=== PATIENT | male | born 1980 | race Asian ===

== ENCOUNTER → 2021-08-13 08:18 | Outpatient (CLI) | payer OTHER, SELFPAY ==
[2021-08-13 19:52] LABS: COVID19 - ORCAS (NP or Nasal) Negative (Negative)
== END ==
PROVIDERS: PCP Physician Assistant Medical; Visit Provider Physician Assistant Medical
DX: Z20.822 Contact with and (suspected) exposure to COVID-19 (principal)
CPT/HCPCS: U0003

== ENCOUNTER → 2022-06-23 11:37 | Outpatient (CLI) | payer OTHER, SELFPAY ==
[2022-06-23 20:08] LABS: Add Manual Diff / Slide Review NO; Basophils Absolute Auto 0 /uL (0-100); Basophils Percent Auto 0.6 % (0-2); Eosinophils Absolute Auto 100 /uL (0-450); Eosinophils Percent Auto 1.7 % (2-4); Hematocrit 46.4 % (41-53); Hemoglobin 15.3 g/dL (13.5-17.5); Lymphocytes Absolute Auto 1700 /uL (1100-4500); Lymphocytes Percent Auto 35.8 % (25-40); Mean Corpuscular HGB Conc 32.9 % (30-36); Mean Corpuscular Hemoglobin 27.5 PG (26-34); Mean Corpuscular Volume 83.4 fL (80-100); Monocytes Absolute Auto 600 /uL (0-900); Monocytes Percent Auto 12.5 % (3-14); Neutrophils Absolute Auto 2300 /uL (1500-7000); Neutrophils Percent Auto 49.4 % (50-75); Platelet Count 211 X10^3/uL (150-400); Red Blood Cell Count 5.56 X10^6/uL (4.5-5.9); Red Cell Distribution Width 14.1 % (11.6-14.8); White Blood Cell Count 4.7 X10^3/uL (4.5-11.0)
[2022-06-23 20:30] LABS: Erythrocyte Sedimentation Rate 5 MM/HR (0-15)
[2022-06-23 20:46] LABS: Appearance Urine UA CLEAR; Bilirubin Urine UA NEGATIVE (NEGATIVE); Color Urine UA YELLOW; Glucose Urine UA NEGATIVE (Negative); Ketones Urine UA 2+ (NEGATIVE); Leukocyte Esterase Urine UA NEGATIVE (NEGATIVE); Nitrite Urine UA NEGATIVE (Negative); Occult Blood Urine UA 1+ (Negative); Protein Urine UA 1+ (Negative); Specific Gravity Urine UA 1.025 (1.000-1.035); Urobilinogen Urine UA 0.2 E.U./dL (0.2); pH Urine UA 5.5 (4.5-8.0)
[2022-06-23 20:53] LABS: HEMOLYSIS < 15 (0-50)
[2022-06-23 21:03] LABS: Alanine Aminotransferase 59 IU/L (<50); Albumin 4.4 g/dL (3.5-5.0); Albumin Globulin Ratio 1.3 (1.0-2.8); Alkaline Phosphatase 328 U/L (38-126); Aspartate Aminotransferase 50 IU/L (17-59); Bilirubin Total 2.8 mg/dL (0.2-1.3); Blood Urea Nitrogen 16 mg/dL (9-20); Calcium 9.8 mg/dL (8.4-10.2); Carbon Dioxide 24 mmol/L (22-32); Chloride 105 mmol/L (98-107); Cholesterol 151 mg/dL (140-199); Estimated Glomerular Filt Rate > 60 mL/min (>60); Globulin 3.3 g/dL (1.7-4.1); Glucose 98 mg/dL (70-100); HDL Cholesterol 40 mg/dL (40-60); LDL Cholesterol Calculated 93 mg/dL (<100); Potassium 3.9 mmol/L (3.4-5.1); Sodium 140 mmol/L (137-145); Total Protein 7.7 g/dL (6.3-8.2); Triglycerides 89 mg/dL (35-150)
[2022-06-23 21:23] LABS: RBC Urine 0-1/HPF (0-5/HPF); WBC Urine None Seen (0-5/HPF)
[2022-06-23 21:24] LABS: Bacteria Urine None Seen; Culture Indicated Urine Cult Not Indicated; Mucus Urine 2+ (Negative)
[2022-06-23 21:32] LABS: TSH w/ Reflex to FT4 < 0.02 uIU/mL (0.47-4.68)
[2022-06-23 22:11] LABS: C-Reactive Protein Quant < 0.5 mg/dL (<1.0)
[2022-06-23 22:28] LABS: Free T4, Direct Thyroxine > 6.99 ng/dL (0.78-2.19)
[2022-06-24 13:29] LABS: Vitamin B12 585 pg/mL (239-931)
== END ==
PROVIDERS: PCP Physician Assistant Medical; Visit Provider Family Medicine
DX: Z00.00 Encounter for general adult medical examination without abnormal findings (principal); Z13.1 Encounter for screening for diabetes mellitus; Z13.220 Encounter for screening for lipoid disorders; Z13.6 Encounter for screening for cardiovascular disorders; R00.0 Tachycardia, unspecified
CPT/HCPCS: 80053; 80061; 81001; 82607; 84439; 84443; 85025; 85651; 86140

== ENCOUNTER → 2022-06-27 13:10 | Outpatient (CLI) | payer OTHER, SELFPAY ==
[2022-06-29 17:26] LABS: Anti Thyroglobulin Antibody <1.0 IU/mL (0.0-0.9); Thyroid Peroxidase Antibodies 106 IU/mL (0-34)
[2022-07-04 08:52] LABS: Testosterone % Fr + Wkly bound 6.9 % (9.0-46.0); Testosterone Fr+Wkly bound 125.4 ng/dL (40.0-250.0)
[2022-07-08 22:07] LABS: Thyroglobulin Level 124 ng/mL (.)
== END ==
PROVIDERS: Family Medicine; PCP Physician Assistant Medical; Visit Provider Family Medicine
DX: E05.90 Thyrotoxicosis, unspecified without thyrotoxic crisis or storm (principal); L70.9 Acne, unspecified
CPT/HCPCS: 84403; 84432; 86376; 86800

== ENCOUNTER → 2022-07-27 13:11 | Outpatient (CLI) | payer OTHER, SELFPAY ==
[2022-07-27 19:31] LABS: Add Manual Diff / Slide Review NO; Basophils Absolute Auto 0 /uL (0-100); Basophils Percent Auto 0.6 % (0-2); Eosinophils Absolute Auto 300 /uL (0-450); Eosinophils Percent Auto 3.7 % (2-4); Hematocrit 43.7 % (41-53); Hemoglobin 14.9 g/dL (13.5-17.5); Lymphocytes Absolute Auto 2400 /uL (1100-4500); Lymphocytes Percent Auto 33.2 % (25-40); Mean Corpuscular Hemoglobin 27.8 PG (26-34); Mean Corpuscular Volume 81.6 fL (80-100); Monocytes Absolute Auto 500 /uL (0-900); Monocytes Percent Auto 6.4 % (3-14); Neutrophils Absolute Auto 4000 /uL (1500-7000); Neutrophils Percent Auto 56.1 % (50-75); Platelet Count 263 X10^3/uL (150-400); Red Blood Cell Count 5.36 X10^6/uL (4.5-5.9); Red Cell Distribution Width 14.4 % (11.6-14.8); White Blood Cell Count 7.2 X10^3/uL (4.5-11.0)
[2022-07-27 19:51] LABS: Alanine Aminotransferase 30 IU/L (<50); Albumin 4.2 g/dL (3.5-5.0); Albumin Globulin Ratio 1.4 (1.0-2.8); Alkaline Phosphatase 279 U/L (38-126); Aspartate Aminotransferase 28 IU/L (17-59); BUN Creatinine Ratio 32.7 (6-22); Bilirubin Total 1.3 mg/dL (0.2-1.3); Blood Urea Nitrogen 16 mg/dL (9-20); Calcium 9.3 mg/dL (8.4-10.2); Carbon Dioxide 26 mmol/L (22-32); Chloride 101 mmol/L (98-107); Estimated Glomerular Filt Rate > 60 mL/min (>60); Globulin 3.1 g/dL (1.7-4.1); Glucose 121 mg/dL (70-100); HEMOLYSIS < 15 (0-50); Potassium 4.2 mmol/L (3.4-5.1); Sodium 140 mmol/L (137-145); Total Protein 7.3 g/dL (6.3-8.2)
[2022-07-27 20:01] LABS: Free T4, Direct Thyroxine 2.45 ng/dL (0.78-2.19)
[2022-07-27 20:19] LABS: Thyroid Stimulating Hormone < 0.015 uIU/mL (0.47-4.68)
[2022-07-30 15:35] LABS: Anti Thyroglobulin Antibody <1.0 IU/mL (0.0-0.9); Thyroid Peroxidase Antibodies 85 IU/mL (0-34)
== END ==
PROVIDERS: Family Medicine; PCP Physician Assistant Medical; Visit Provider Family Medicine
DX: E05.00 Thyrotoxicosis with diffuse goiter without thyrotoxic crisis or storm (principal); E05.90 Thyrotoxicosis, unspecified without thyrotoxic crisis or storm; R00.0 Tachycardia, unspecified
CPT/HCPCS: 80053; 84439; 84443; 85025; 86376; 86800

== ENCOUNTER → 2022-08-04 11:08 | Outpatient (CLI) | payer OTHER, SELFPAY ==
--- NOTE | 2022-08-04 11:10 | DI.US.S_ITS ---
PROCEDURE: US THYROID INDICATIONS: NEW ONSET HYPERTHYROIDISM TECHNIQUE: Real-time scanning was performed of the thyroid gland, with image documentation. COMPARISON: None. FINDINGS: Right: Thyroid lobe measures 6 x 1.8 x 2.5 cm, and is heterogeneous in echotexture. Left: Thyroid lobe measures 5.8 x 1.5 x 2.3 cm, and is heterogeneous in echotexture. Isthmus: 2 mm thick. Nodule number: 1 Location: Lower pole right thyroid lobe Size: 0.9 x 0.8 x 0.9 cm. Composition: Cystic Echogenicity: Anechoic with internal septations Shape: Wider than tall Margins: Smooth Echogenic foci: None Total points: 0 ACR TI-RADS category: Benign. Diffusely increased vascularity within bilateral thyroid lobes are seen. IMPRESSION: 1. Mildly enlarged thyroid gland with heterogeneous thyroid parenchymal echotexture and increased vascularity bilaterally concerning for thyroiditis. 2. Benign appearing septated cyst in lower pole right thyroid lobe. No suspicious thyroid nodule is seen. No neck soft tissue lymphadenopathy. ACR TI-RADS definitions and recommendations: TI-RADS 1 (benign): 0 points. FNA not needed. TI-RADS 2 (not suspicious): 2 points. FNA not needed. TI-RADS 3 (mildly suspicious): 3 points. * FNA if 2.5 cm or larger, follow up if 1.5 cm or larger (at 1, 3, and 5 years). TI-RADS 4 (moderately suspicious): 4-6 points. * FNA if 1.5 cm or larger, follow up if 1 cm or larger (at 1, 2, 3, and 5 years). TI-RADS 5 (highly suspicious): 7 points or more. * FNA if 1 cm or larger, follow up if 0.5 cm or larger (every year for 5 years). Dictated by: Preet Arora M.D. on 08/04/2022 at 13:55 Approved by: Preet Arora M.D. on 08/04/2022 at 13:57
--- NOTE | 2022-08-04 11:10 | DI.ECHO.S_ITS ---
[facility] +---------+ : : [address] : : : : [id number] : : : : Phone: [phone]+ Echocardiogram Report + + :Name: CLEVELAND SPENCE Study Date: 08/04/2022 Height: 66 in : :[facility] ReadingLocation: Weight: 120 lb : : Gender: Male BSA: 1.6 m2 : :: 1980 Age: 42 yrs BP: 120/78 mmHg: :Reason For Study: Tachycardia, hyperthyroidism : :Ordering Physician: JOSE, : :LAMONT Performed By: Lisa Sherwood : :Referring: LAMONT GARCIA : + + Interpretation Summary The left ventricle is normal in size and wall thickness. The ejection fraction is estimated to be 60-65%. The right ventricle is normal in size and function. There is mild to moderate mitral regurgitation. There is mild to moderate tricuspid regurgitation. The right ventricular systolic pressure is estimated to be at least 31.2 mmHg based on an estimated right atrial pressure of 8 mm Hg. Procedure: A two-dimensional transthoracic echocardiogram with color flow and Doppler was performed. The study quality was technically good. There is no prior echocardiogram noted for this patient. The patient was in sinus bradycardia with heart rates between 61-69 bpm during the exam. Left Ventricle: The left ventricle is normal in size and wall thickness. There is no thrombus. The ejection fraction is estimated to be 60-65%. There are no focal wall motion abnormalities. Diastolic parameters suggest probable normal left ventricular diastolic function and normal filling pressures. Right Ventricle: The right ventricle is normal in size and function. Atria: The left atrial size is normal. Right atrial size is normal. There is no Doppler evidence for an interatrial shunt. Mitral Valve: The mitral valve leaflets appear mildly thickened, but open well. The mitral valve leaflets appear to open well. There is no mitral valve stenosis. There is mild to moderate mitral regurgitation. Aortic Valve: The aortic valve is grossly normal. The aortic valve is trileaflet. There is no aortic valve stenosis. No aortic regurgitation is present. Tricuspid Valve: The tricuspid valve is normal. There is mild to moderate tricuspid regurgitation. The right ventricular systolic pressure is estimated to be at least 31.2 mmHg based on an estimated right atrial pressure of 8 mm Hg. Pulmonic Valve: The pulmonic valve leaflets are thin and pliable; valve motion is normal. There is trace pulmonic regurgitation. Great Vessels: The aortic root is normal size. The ascending aorta is normal in size. The IVC is dilated (diameter is greater than 2.1 cm) yet it collapses greater than 50% with a sniff. This suggests a right atrial pressure of 8 mm Hg. Pericardium/ Pleura There is no pericardial effusion. There is no pleural effusion. MMode/2D Measurements & Calculations LVIDd: 5.0 cm LVOT diam: 1.9 cm LVIDs: 2.9 cm Ao root diam: 3.2 cm FS: 42.0 % asc Aorta Diam: 3.2 cm EPSS: 0.30 cm IVSd: 0.50 cm LVPWd: 0.70 cm LV collins. diameter/BSA (cm/m^2): 3.1 LV sys. diameter/BSA (cm/m^2): 1.8 LA dimension: 3.4 cm RA long axis: 4.5 cm LA A2 area: 14.9 cm2 RA area: 13.9 cm2 LA A4 area: 14.1 cm2 RA vol: 36.2 ml LA length (vol): 4.4 cm RA : 22.5 ml/m2 LA vol: 40.3 ml IVC diam: 2.2 cm LA vol index: 25.0 ml/m2 RVD1 (basal): 3.4 cm LVLs ap4: 6.9 cm LVLd ap2: 8.8 cm TAPSE_phl: 2.8 cm LVLs ap2: 7.3 cm Doppler Measurements & Calculations Ao V2 max: 160.0 cm/sec LVOT Max Jaden: 129.0 cm/sec Ao V2 mean: 117.0 cm/sec LV V1 max P.7 mmHg Ao max P.0 mmHg LV V1 VTI: 27.9 cm Ao mean P.0 mmHg KAREN(I,D): 2.4 cm2 Ao V2 VTI: 33.2 cm KAREN(V,D): 2.3 cm2 sev ratio: 0.84 KAREN indexed to BSA (cm^2/m^2): 1.5 MV E max jaden: 74.1 cm/sec TR max jaden: 241.0 cm/sec MV A max jaden: 43.7 cm/sec TR max P.2 mmHg MV E/A: 1.7 PA V2 max: 96.1 cm/sec Med Peak E' Jaden: 10.7 cm/sec PA V2 mean: 63.0 cm/sec E/E' med: 6.9 PA mean P.0 mmHg Lat Peak E' Jaden: 16.1 cm/sec E/E' lat: 4.6 E/e' average: 5.8 MV dec time: 0.28 sec MVA(VTI): 3.1 cm2 MV V2 mean: 49.2 cm/sec SV(LVOT): 79.1 ml MV mean P.0 mmHg MV V2 VTI: 25.7 cm AV VR_phl: 0.81 MV P1/2t-pr_phl: 82.0 msec KAREN(VTI)/BSA_phl: 1.5 Reading Physician:07:05 PM
== END ==
PROVIDERS: PCP Physician Assistant Medical; Referring Provider Family Medicine; Visit Provider Family Medicine
DX: E05.90 Thyrotoxicosis, unspecified without thyrotoxic crisis or storm (principal); R00.0 Tachycardia, unspecified; E04.1 Nontoxic single thyroid nodule; I08.1 Rheumatic disorders of both mitral and tricuspid valves
CPT/HCPCS: 76536; 93306

== ENCOUNTER → 2022-08-29 10:44 | Outpatient (CLI) | payer OTHER, SELFPAY ==
[2022-08-29 19:24] LABS: Alanine Aminotransferase 28 IU/L (<50); Albumin 4.6 g/dL (3.5-5.0); Albumin Globulin Ratio 1.4 (1.0-2.8); Alkaline Phosphatase 345 U/L (38-126); Aspartate Aminotransferase 26 IU/L (17-59); Bilirubin Total 1.7 mg/dL (0.2-1.3); Bilirubin Unconjugated 1.3 mg/dL (0.0-1.1); Globulin 3.3 g/dL (1.7-4.1); HEMOLYSIS 16 (0-50); Total Protein 7.9 g/dL (6.3-8.2)
[2022-08-29 19:48] LABS: TSH w/ Reflex to FT4 < 0.02 uIU/mL (0.47-4.68)
[2022-09-13 07:51] LABS: Percent Free Testosterone 1.32 % (1.50-4.20); Testosterone Free 10.45 ng/dL (5.00-21.00); Testosterone Total 791.9 ng/dL (264.0-916.0)
== END ==
PROVIDERS: PCP Physician Assistant Medical; Visit Provider Family Medicine
DX: E05.90 Thyrotoxicosis, unspecified without thyrotoxic crisis or storm (principal); E06.3 Autoimmune thyroiditis; E29.0 Testicular hyperfunction; R79.89 Other specified abnormal findings of blood chemistry
CPT/HCPCS: 80076; 84402; 84403; 84439; 84443

== ENCOUNTER → 2022-10-13 11:03 | Outpatient (CLI) | payer OTHER, SELFPAY ==
[2022-10-13 20:19] LABS: Alanine Aminotransferase 26 IU/L (<50); Albumin 4.7 g/dL (3.5-5.0); Albumin Globulin Ratio 1.5 (1.0-2.8); Alkaline Phosphatase 341 U/L (38-126); Aspartate Aminotransferase 28 IU/L (17-59); Bilirubin Total 1.8 mg/dL (0.2-1.3); Bilirubin Unconjugated 1.5 mg/dL (0.0-1.1); C-Reactive Protein Quant < 0.5 mg/dL (<1.0); Gamma Glutamyl Transpeptidase 22 U/L (15-73); Globulin 3.2 g/dL (1.7-4.1); HEMOLYSIS < 15 (0-50); Total Protein 7.9 g/dL (6.3-8.2)
[2022-10-13 20:34] LABS: Erythrocyte Sedimentation Rate 1 MM/HR (0-15)
[2022-10-13 20:45] LABS: TSH w/ Reflex to FT4 < 0.02 uIU/mL (0.47-4.68)
[2022-10-13 21:33] LABS: Free T4, Direct Thyroxine 0.74 ng/dL (0.78-2.19)
== END ==
PROVIDERS: PCP Physician Assistant Medical; Visit Provider Family Medicine
DX: E05.90 Thyrotoxicosis, unspecified without thyrotoxic crisis or storm (principal); E06.3 Autoimmune thyroiditis; R00.0 Tachycardia, unspecified; R79.89 Other specified abnormal findings of blood chemistry
CPT/HCPCS: 80076; 82977; 84439; 84443; 85651; 86140

== ENCOUNTER → 2022-11-22 11:08 | Outpatient (CLI) | payer OTHER, SELFPAY ==
[2022-11-22 20:02] LABS: Alanine Aminotransferase 27 IU/L (<50); Albumin 4.6 g/dL (3.5-5.0); Albumin Globulin Ratio 1.4 (1.0-2.8); Alkaline Phosphatase 327 U/L (38-126); Aspartate Aminotransferase 30 IU/L (17-59); BUN Creatinine Ratio 16.7 (6-22); Bilirubin Total 1.7 mg/dL (0.2-1.3); Blood Urea Nitrogen 13 mg/dL (9-20); Calcium 9.2 mg/dL (8.4-10.2); Carbon Dioxide 30 mmol/L (22-32); Chloride 102 mmol/L (98-107); Estimated Glomerular Filt Rate > 60 mL/min (>60); Globulin 3.4 g/dL (1.7-4.1); Glucose 95 mg/dL (70-100); HEMOLYSIS < 15 (0-50); Sodium 139 mmol/L (137-145)
[2022-11-22 20:17] LABS: Free T3, Triiodothyronine Free 2.43 pg/mL (2.77-5.27); Free T4, Direct Thyroxine 0.33 ng/dL (0.78-2.19)
[2022-11-22 20:30] LABS: Thyroid Stimulating Hormone 2.97 uIU/mL (0.47-4.68)
[2022-11-26 18:19] LABS: Thyroid Stimulating Immunoglob 5.63 IU/L (0.00-0.55)
[2022-11-28 05:10] LABS: Alkaline Phosphatase 377 IU/L (44-121)
[2022-11-29 09:10] LABS: Percent Free Testosterone 3.49 % (1.50-4.20); Testosterone Total 432.7 ng/dL (264.0-916.0)
== END ==
PROVIDERS: PCP Physician Assistant Medical; Visit Provider Internal Medicine Endocrinology, Diabetes & Metabolism
DX: E05.90 Thyrotoxicosis, unspecified without thyrotoxic crisis or storm (principal); R74.8 Abnormal levels of other serum enzymes; E06.3 Autoimmune thyroiditis; E29.0 Testicular hyperfunction; R79.89 Other specified abnormal findings of blood chemistry
CPT/HCPCS: 80053; 83520; 84080; 84402; 84403; 84439; 84443; 84445; 84481

== ENCOUNTER → 2023-02-28 14:33 | Outpatient (CLI) | payer OTHER, SELFPAY ==
[2023-02-28 19:58] LABS: Hemoglobin 15.8 g/dL (13.5-17.5); Mean Corpuscular HGB Conc 33.7 % (30-36); Mean Corpuscular Hemoglobin 29.9 PG (26-34); Mean Corpuscular Volume 88.8 fL (80-100); Platelet Count 229 X10^3/uL (150-400); Red Blood Cell Count 5.29 X10^6/uL (4.5-5.9); Red Cell Distribution Width 13.6 % (11.6-14.8); White Blood Cell Count 7.1 X10^3/uL (4.5-11.0)
[2023-02-28 20:04] LABS: Alanine Aminotransferase 22 IU/L (<50); Albumin 4.9 g/dL (3.5-5.0); Albumin Globulin Ratio 1.3 (1.0-2.8); Alkaline Phosphatase 167 U/L (38-126); Aspartate Aminotransferase 31 IU/L (17-59); BUN Creatinine Ratio 19.5 (6-22); Bilirubin Total 1.7 mg/dL (0.2-1.3); Blood Urea Nitrogen 16 mg/dL (9-20); Calcium 9.3 mg/dL (8.4-10.2); Carbon Dioxide 24 mmol/L (22-32); Chloride 100 mmol/L (98-107); Estimated Glomerular Filt Rate > 60 mL/min (>60); Globulin 3.7 g/dL (1.7-4.1); Glucose 97 mg/dL (70-100); HEMOLYSIS 46 (0-50); Potassium 4.4 mmol/L (3.4-5.1); Sodium 138 mmol/L (137-145); Total Protein 8.6 g/dL (6.3-8.2)
[2023-02-28 20:19] LABS: Vitamin D 25 Hydroxy (D3) 38.8 ng/mL (30.0-100.0)
[2023-02-28 20:25] LABS: Free T3, Triiodothyronine Free 4.01 pg/mL (2.77-5.27)
[2023-02-28 20:39] LABS: Thyroid Stimulating Hormone 2.65 uIU/mL (0.47-4.68)
== END ==
PROVIDERS: PCP Physician Assistant Medical; Visit Provider Internal Medicine Endocrinology, Diabetes & Metabolism
DX: E05.90 Thyrotoxicosis, unspecified without thyrotoxic crisis or storm (principal)
CPT/HCPCS: 80053; 82306; 84439; 84443; 84481; 85027

== ENCOUNTER → 2023-06-14 11:31 | Outpatient (CLI) | payer OTHER, SELFPAY ==
[2023-06-14 19:21] LABS: Hematocrit 47.2 % (41-53); Hemoglobin 16.2 g/dL (13.5-17.5); Mean Corpuscular HGB Conc 34.3 % (30-36); Mean Corpuscular Hemoglobin 30.6 PG (26-34); Mean Corpuscular Volume 89.3 fL (80-100); Platelet Count 214 X10^3/uL (150-400); Red Blood Cell Count 5.28 X10^6/uL (4.5-5.9); Red Cell Distribution Width 14.6 % (11.6-14.8); White Blood Cell Count 7.4 X10^3/uL (4.5-11.0)
[2023-06-14 19:24] LABS: Alanine Aminotransferase 18 IU/L (<50); Albumin 4.7 g/dL (3.5-5.0); Albumin Globulin Ratio 1.3 (1.0-2.8); Alkaline Phosphatase 97 U/L (38-126); Aspartate Aminotransferase 25 IU/L (17-59); Bilirubin Total 1.8 mg/dL (0.2-1.3); Blood Urea Nitrogen 17 mg/dL (9-20); Calcium 9.9 mg/dL (8.4-10.2); Carbon Dioxide 29 mmol/L (22-32); Chloride 101 mmol/L (98-107); Estimated Glomerular Filt Rate > 60 mL/min (>60); Globulin 3.6 g/dL (1.7-4.1); Glucose 107 mg/dL (70-100); HEMOLYSIS < 15 (0-50); Sodium 139 mmol/L (137-145); Total Protein 8.3 g/dL (6.3-8.2)
[2023-06-14 19:45] LABS: Free T3, Triiodothyronine Free 3.85 pg/mL (2.77-5.27); Free T4, Direct Thyroxine 1.05 ng/dL (0.78-2.19)
[2023-06-14 19:58] LABS: Thyroid Stimulating Hormone 2.53 uIU/mL (0.47-4.68)
== END ==
PROVIDERS: PCP Physician Assistant Medical; Visit Provider Internal Medicine Endocrinology, Diabetes & Metabolism
DX: E05.90 Thyrotoxicosis, unspecified without thyrotoxic crisis or storm (principal); R74.8 Abnormal levels of other serum enzymes
CPT/HCPCS: 80053; 84439; 84443; 84481; 85027

== ENCOUNTER → 2023-09-14 13:58 | Outpatient (CLI) | payer OTHER, SELFPAY ==
[2023-09-14 20:37] LABS: Alanine Aminotransferase 15 IU/L (<50); Albumin 4.4 g/dL (3.5-5.0); Albumin Globulin Ratio 1.4 (1.0-2.8); Alkaline Phosphatase 81 U/L (38-126); Aspartate Aminotransferase 22 IU/L (17-59); BUN Creatinine Ratio 21.9 (6-22); Bilirubin Total 1.2 mg/dL (0.2-1.3); Blood Urea Nitrogen 21 mg/dL (9-20); Calcium 9.7 mg/dL (8.4-10.2); Carbon Dioxide 27 mmol/L (22-32); Chloride 102 mmol/L (98-107); Estimated Glomerular Filt Rate > 60 mL/min (>60); Globulin 3.1 g/dL (1.7-4.1); Glucose 95 mg/dL (70-100); HEMOLYSIS < 15 (0-50); Potassium 4.2 mmol/L (3.4-5.1); Sodium 137 mmol/L (137-145); Total Protein 7.5 g/dL (6.3-8.2)
[2023-09-14 20:39] LABS: Hematocrit 43.3 % (41-53); Hemoglobin 14.7 g/dL (13.5-17.5); Mean Corpuscular Hemoglobin 30.3 PG (26-34); Mean Corpuscular Volume 89.4 fL (80-100); Platelet Count 224 X10^3/uL (150-400); Red Blood Cell Count 4.84 X10^6/uL (4.5-5.9); Red Cell Distribution Width 13.8 % (11.6-14.8); White Blood Cell Count 5.9 X10^3/uL (4.5-11.0)
[2023-09-14 20:54] LABS: Free T3, Triiodothyronine Free 3.39 pg/mL (2.77-5.27); Free T4, Direct Thyroxine 0.98 ng/dL (0.78-2.19)
[2023-09-14 21:08] LABS: Thyroid Stimulating Hormone 3.11 uIU/mL (0.47-4.68)
[2023-09-15 23:58] LABS: Triiodothyronine T3 Total 80 ng/dL (71-180)
== END ==
PROVIDERS: PCP Physician Assistant Medical; Visit Provider Internal Medicine Endocrinology, Diabetes & Metabolism
DX: E05.00 Thyrotoxicosis with diffuse goiter without thyrotoxic crisis or storm (principal)
CPT/HCPCS: 80053; 84439; 84443; 84480; 84481; 85027

== ENCOUNTER → 2023-10-12 10:08 | Outpatient (CLI) | payer OTHER, SELFPAY ==
[2023-10-12 20:16] LABS: Cholesterol 230 mg/dL (140-199); HDL Cholesterol 52 mg/dL (40-60); LDL Cholesterol Calculated 164 mg/dL (<100); Triglycerides 71 mg/dL (35-150)
== END ==
PROVIDERS: PCP Physician Assistant Medical; Visit Provider Family Medicine
DX: Z13.220 Encounter for screening for lipoid disorders (principal); Z13.6 Encounter for screening for cardiovascular disorders
CPT/HCPCS: 80061

== ENCOUNTER → 2024-02-26 12:57 | Outpatient (CLI) | payer OTHER, SELFPAY ==
[2024-02-26 20:27] LABS: Add Manual Diff / Slide Review NO; Basophils Absolute Auto 100 /uL (0-100); Basophils Percent Auto 0.6 % (0-2); Eosinophils Absolute Auto 100 /uL (0-450); Eosinophils Percent Auto 1.7 % (2-4); Hematocrit 43.8 % (41-53); Hemoglobin 14.9 g/dL (13.5-17.5); Lymphocytes Absolute Auto 1900 /uL (1100-4500); Lymphocytes Percent Auto 22.4 % (25-40); Mean Corpuscular HGB Conc 34.1 % (30-36); Mean Corpuscular Hemoglobin 30.2 PG (26-34); Mean Corpuscular Volume 88.6 fL (80-100); Monocytes Absolute Auto 500 /uL (0-900); Monocytes Percent Auto 5.5 % (3-14); Neutrophils Absolute Auto 6000 /uL (1500-7000); Neutrophils Percent Auto 69.8 % (50-75); Platelet Count 243 X10^3/uL (150-400); Red Blood Cell Count 4.95 X10^6/uL (4.5-5.9); Red Cell Distribution Width 13.7 % (11.6-14.8); White Blood Cell Count 8.5 X10^3/uL (4.5-11.0)
[2024-02-26 20:35] LABS: Alanine Aminotransferase 17 IU/L (<50); Albumin 4.6 g/dL (3.5-5.0); Albumin Globulin Ratio 1.3 (1.0-2.8); Alkaline Phosphatase 73 U/L (38-126); Aspartate Aminotransferase 66 IU/L (17-59); Bilirubin Total 1.5 mg/dL (0.2-1.3); Blood Urea Nitrogen 20 mg/dL (9-20); Calcium 9.6 mg/dL (8.4-10.2); Carbon Dioxide 30 mmol/L (22-32); Chloride 100 mmol/L (98-107); Estimated Glomerular Filt Rate > 60 mL/min (>60); Globulin 3.6 g/dL (1.7-4.1); Glucose 98 mg/dL (70-100); HEMOLYSIS 31 (0-50); Potassium 3.8 mmol/L (3.4-5.1); Sodium 137 mmol/L (137-145); Total Protein 8.2 g/dL (6.3-8.2)
[2024-02-26 20:57] LABS: Free T3, Triiodothyronine Free 3.37 pg/mL (2.77-5.27)
[2024-02-26 21:11] LABS: TSH w/ Reflex to FT4 3.01 uIU/mL (0.47-4.68)
[2024-02-28 07:37] LABS: Triiodothyronine T3 Total 85 ng/dL (71-180)
== END ==
PROVIDERS: PCP Physician Assistant Medical; Visit Provider Internal Medicine Endocrinology, Diabetes & Metabolism
DX: E05.00 Thyrotoxicosis with diffuse goiter without thyrotoxic crisis or storm (principal)
CPT/HCPCS: 80053; 84443; 84480; 84481; 85025

== ENCOUNTER → 2024-04-03 12:03 | Outpatient (CLI) | payer OTHER, SELFPAY ==
[2024-04-03 20:58] LABS: Alanine Aminotransferase 15 IU/L (<50); Albumin 4.6 g/dL (3.5-5.0); Albumin Globulin Ratio 1.4 (1.0-2.8); Alkaline Phosphatase 60 U/L (38-126); Aspartate Aminotransferase 22 IU/L (17-59); BUN Creatinine Ratio 20.8 (6-22); Bilirubin Total 1.6 mg/dL (0.2-1.3); Blood Urea Nitrogen 15 mg/dL (9-20); Calcium 9.6 mg/dL (8.4-10.2); Carbon Dioxide 29 mmol/L (22-32); Chloride 99 mmol/L (98-107); Estimated Glomerular Filt Rate > 60 mL/min (>60); Globulin 3.3 g/dL (1.7-4.1); Glucose 122 mg/dL (70-100); HEMOLYSIS < 15 (0-50); Sodium 136 mmol/L (137-145); Total Protein 7.9 g/dL (6.3-8.2)
== END ==
PROVIDERS: PCP Physician Assistant Medical; Visit Provider Internal Medicine Endocrinology, Diabetes & Metabolism
DX: R74.01 Elevation of levels of liver transaminase levels (principal)
CPT/HCPCS: 80053

== ENCOUNTER → 2024-09-25 09:58 | Outpatient (CLI) | payer OTHER, SELFPAY ==
[2024-09-25 18:53] LABS: Add Manual Diff / Slide Review NO; Basophils Absolute Auto 0 /uL (0-100); Basophils Percent Auto 0.5 % (0-2); Eosinophils Absolute Auto 100 /uL (0-450); Eosinophils Percent Auto 2.9 % (2-4); Hematocrit 42.8 % (41-53); Hemoglobin 14.4 g/dL (13.5-17.5); Lymphocytes Absolute Auto 1200 /uL (1100-4500); Lymphocytes Percent Auto 28.9 % (25-40); Mean Corpuscular HGB Conc 33.7 % (30-36); Mean Corpuscular Hemoglobin 29.6 PG (26-34); Mean Corpuscular Volume 87.7 fL (80-100); Monocytes Absolute Auto 300 /uL (0-900); Monocytes Percent Auto 7.3 % (3-14); Neutrophils Absolute Auto 2500 /uL (1500-7000); Neutrophils Percent Auto 60.4 % (50-75); Platelet Count 223 X10^3/uL (150-400); Red Blood Cell Count 4.88 X10^6/uL (4.5-5.9); White Blood Cell Count 4.1 X10^3/uL (4.5-11.0)
[2024-09-25 19:06] LABS: Alanine Aminotransferase 19 IU/L (<50); Albumin 4.8 g/dL (3.5-5.0); Albumin Globulin Ratio 1.5 (1.0-2.8); Alkaline Phosphatase 60 U/L (38-126); Aspartate Aminotransferase 50 IU/L (17-59); BUN Creatinine Ratio 16.2 (6-22); Bilirubin Total 1.8 mg/dL (0.2-1.3); Blood Urea Nitrogen 12 mg/dL (9-20); Calcium 9.3 mg/dL (8.4-10.2); Carbon Dioxide 28 mmol/L (22-32); Chloride 101 mmol/L (98-107); Cholesterol 241 mg/dL (140-199); Estimated Glomerular Filt Rate > 60 mL/min (>60); Globulin 3.2 g/dL (1.7-4.1); Glucose 99 mg/dL (70-100); HDL Cholesterol 53 mg/dL (40-60); HEMOLYSIS 17 (0-50); LDL Cholesterol Calculated 174 mg/dL (<100); Potassium 3.8 mmol/L (3.4-5.1); Sodium 137 mmol/L (137-145); Triglycerides 69 mg/dL (35-150)
[2024-09-25 19:43] LABS: TSH w/ Reflex to FT4 0.35 uIU/mL (0.47-4.68)
[2024-09-25 20:11] LABS: Free T4, Direct Thyroxine 1.56 ng/dL (0.78-2.19)
[2024-09-27 07:10] LABS: Triiodothyronine T3 Total 100 ng/dL (71-180)
[2024-09-27 21:07] LABS: Anti Thyroglobulin Antibody <1.0 IU/mL (0.0-0.9)
[2024-09-28 20:11] LABS: Thyroid Stimulating Immunoglob 0.67 IU/L (0.00-0.55)
== END ==
PROVIDERS: PCP Family Medicine; Visit Provider Family Medicine
DX: E05.00 Thyrotoxicosis with diffuse goiter without thyrotoxic crisis or storm (principal); R79.89 Other specified abnormal findings of blood chemistry; Z13.1 Encounter for screening for diabetes mellitus; Z13.6 Encounter for screening for cardiovascular disorders
CPT/HCPCS: 80053; 80061; 84439; 84443; 84445; 84480; 85025; 86800

== ENCOUNTER → 2024-12-03 14:01 | Outpatient (CLI) | payer OTHER, SELFPAY ==
[2024-12-03 19:53] LABS: Hematocrit 41.1 % (41-53); Hemoglobin 14.1 g/dL (13.5-17.5); Mean Corpuscular HGB Conc 34.3 % (30-36); Mean Corpuscular Hemoglobin 30.5 PG (26-34); Mean Corpuscular Volume 88.9 fL (80-100); Platelet Count 232 X10^3/uL (150-400); Red Blood Cell Count 4.63 X10^6/uL (4.5-5.9); Red Cell Distribution Width 13.9 % (11.6-14.8)
[2024-12-03 20:18] LABS: Free T4, Direct Thyroxine 1.61 ng/dL (0.78-2.19)
[2024-12-03 20:31] LABS: Thyroid Stimulating Hormone 0.662 uIU/mL (0.47-4.68)
== END ==
PROVIDERS: PCP Family Medicine; Visit Provider Internal Medicine Endocrinology, Diabetes & Metabolism
DX: E05.00 Thyrotoxicosis with diffuse goiter without thyrotoxic crisis or storm (principal)
CPT/HCPCS: 84439; 84443; 85027